=== PATIENT | female | born 1935 | race Caucasian/White ===

== ENCOUNTER 2016-09-01 07:57 | Day surgery (SDC) | payer MEDICARE, OTHER ==
[~2016-09-01] VITALS: Ht 167.6 cm; Wt 57.3 kg
[2016-09-01] VITALS (10 sets, daily range): BP systolic 152–192; BP diastolic 68–114; PULSE 70–84; TEMP 97.5–98.1
[~2016-09-01 07:57] MED LIST: ASPIRIN E.C. 8181 MG PO; CALCIUM 600MG+D1 TAB PO; CALCIUM500 MG PO; COREG 25MG25 MG/TAB PO; COUMADIN 5MG5 MG/TAB PO; DITROPAN XL 5MG5 M1 PO; FLAXSEED OIL1 CAP PO; HCTZ/TRIAMTEREN1 CAP PO; KLOR-CON 1010 MEQ PO; LASIX 40MG TABL40 MG PO; MULTIPLE VITAMI1 CAP PO; ZOCOR 20MG20 MG PO
[2016-09-01 08:48] LABS: MEAN CELL VOLUME 93 fl (80.0-100.0); MEAN CORPUSCULAR HEMOGLOBIN 30 pg (27.0-31.0); MEAN CORPUSCULAR HGB CONC 33 g/dl (33.0-37.0); MEAN PLATELET VOLUME 10.8 fl (7.4-10.4); PLATELET COUNT 224 K/mm3 (130-400); RED BLOOD COUNT 3.96 M/mm3 (4.10-5.30); REDCELL DISTRIBUTION WIDTH-CV 15.4 % (11.5-14.5); WHITE BLOOD COUNT 5.1 K/mm3 (4.8-10.8)
[2016-09-01 08:58] LABS: INR 1.2 (0.8-3.0); PROTHROMBIN TIME 13.2 SECONDS (9.7-12.8)
[2016-09-01 09:03] LABS: CALCIUM 9.5 mg/dL (8.4-10.2); CREATININE, serum 1.05 mg/dL (0.52-1.25); POTASSIUM 3.5 mmol/L (3.4-5.0)
[2016-09-01 09:04] LABS: HEMATOCRIT 36.9 % (37.0-47.0)
[2016-09-01] MEDS ORDERED: LASIX 40MG TABL40 MG PO (12:11)
[2016-09-01] MEDS ORDERED: KLOR-CON 1010 MEQ PO (12:11)
[2016-09-02 05:26] VITALS: BP 143/86; PULSE 70; TEMP 98.2
[2016-09-02 07:32] VITALS: BP 151/82; PULSE 64; TEMP 97.8
[2016-09-02] MEDS ORDERED: CEPHALEXIN500 M1 PO (10:35)
[2016-09-02] MEDS ORDERED: LIPITOR 10MG10 MG PO (10:35)
[2016-09-02] MEDS ORDERED: CARDIZEM CD 18180 MG PO (10:36)
== END 2016-09-02 11:58 | disposition home or self-care (01) ==
LOC: EUO 07:57 → COL.RAD 08:00 → EUO 08:00 → MEDICAL 12:25 → EUO 09-02 11:58
PROVIDERS: Internal Medicine Cardiovascular Disease
DX: I48.2 Chronic atrial fibrillation (principal); I49.5 Sick sinus syndrome; I11.0 Hypertensive heart disease with heart failure; I50.32 Chronic diastolic (congestive) heart failure; E78.5 Hyperlipidemia, unspecified; G47.30 Sleep apnea, unspecified; E03.9 Hypothyroidism, unspecified; M85.80 Other specified disorders of bone density and structure, unspecified site; Z79.899 Other long term (current) drug therapy; Z79.01 Long term (current) use of anticoagulants
CPT/HCPCS: OP; C1786; C1894; C1898; J0690; J2250; J3010; J7040

== ENCOUNTER 2016-09-11 10:41 | Inpatient (IN) | payer MEDICARE, OTHER ==
[~2016-09-11] VITALS: Ht 167.6 cm; Wt 60.0 kg
[~2016-09-11 10:41] MED LIST changes: +CARDIZEM CD 18180 MG PO; +CEPHALEXIN500 M1 PO; +LIPITOR 10MG10 MG PO
[2016-09-11 11:26] LABS: BASO % 0.2 % (0.0-2.0); EOS % 0.5 % (0-4.0); GRAN # 3.8 (1.4-6.5); GRAN % 68.8 % (42.2-75.2); LYMPH % 18.6 % (20.0-51.0); MEAN CELL VOLUME 93 fl (80.0-100.0); MEAN CORPUSCULAR HGB CONC 33 g/dl (33.0-37.0); MEAN PLATELET VOLUME 10.1 fl (7.4-10.4); MONO # 0.6 (0.1-0.6); MONO % 11.5 % (1.7-9.3); PLATELET COUNT 224 K/mm3 (130-400); RED BLOOD COUNT 3.64 M/mm3 (4.10-5.30); REDCELL DISTRIBUTION WIDTH-CV 14.9 % (11.5-14.5); WHITE BLOOD COUNT 5.6 K/mm3 (4.8-10.8)
[2016-09-11 11:27] LABS: HEMATOCRIT 33.7 % (37.0-47.0); MEAN CORPUSCULAR HEMOGLOBIN 30 pg (27.0-31.0)
[2016-09-11 11:37] LABS: ADJUSTED CALCIUM 9.4 mg/dL (8.4-10.2); ALBUMIN 3.3 gm/dL (3.5-5.0); BILIRUBIN,TOTAL 0.8 mg/dL (0.0-1.0); CALCIUM 8.8 mg/dL (8.4-10.2); CREATININE, serum 1.25 mg/dL (0.52-1.25); POTASSIUM 4.4 mmol/L (3.4-5.0); TOTAL PROTEIN 6.5 gm/dL (6.4-8.2)
[2016-09-11 12:47] LABS: PH 7 (5-8); SQUAMOUS EPITHELIAL None Seen /hpf; URINE APPEARANCE Clear; URINE BACTERIA None Seen /hpf; URINE BILIRUBIN Negative (NEGATIVE); URINE BLOOD Negative (NEGATIVE); URINE COLOR Straw; URINE GLUCOSE Negative (NEGATIVE); URINE KETONE Negative (NEGATIVE); URINE RBC 0-2 /hpf; URINE UROBILINOGEN Negative (NEGATIVE); URINE WBC 0-2 /hpf
[2016-09-11 19:57] VITALS: BP 117/46; PULSE 62; TEMP 97.6
[2016-09-11 23:55] VITALS: BP 127/57; PULSE 56; TEMP 98.4
[2016-09-12 04:03] VITALS: BP 145/73; PULSE 89; TEMP 98.5
[2016-09-12 07:27] VITALS: BP 154/91; PULSE 44; TEMP 98.2
[2016-09-12] MEDS ORDERED: DITROPAN XL 5MG5 M1 PO (12:54)
[2016-09-12] MEDS ORDERED: COUMADIN 5MG5 MG/TAB PO (12:54)
[2016-09-12] MEDS ORDERED: COREG 25MG25 MG/TAB PO (12:54)
[2016-09-12] MEDS ORDERED: LIPITOR 10MG10 MG PO (12:54)
[2016-09-12] MEDS ORDERED: LASIX 40MG TABL40 MG PO (12:54)
[2016-09-12] MEDS ORDERED: HCTZ 25MG TAB25 MG PO (12:54)
[2016-09-12] MEDS ORDERED: CARDIZEM CD 18180 MG PO (12:54)
== END 2016-09-12 13:10 | disposition home or self-care (01) | DRG 293 ==
LOC: COL.ER 10:41 → MEDICAL 14:51
PROVIDERS: Emergency Medicine
DX: I11.0 Hypertensive heart disease with heart failure (principal); I50.33 Acute on chronic diastolic (congestive) heart failure; I25.10 Atherosclerotic heart disease of native coronary artery without angina pectoris; I48.91 Unspecified atrial fibrillation; Z95.0 Presence of cardiac pacemaker; I42.0 Dilated cardiomyopathy
CPT/HCPCS: 99238; J1940; J7040; Q9967

== ENCOUNTER → 2017-04-13 | Outpatient (CLI) | payer MEDICARE ==
[~2017-04-13] MED LIST changes: +HCTZ 25MG TAB25 MG PO
== END ==
LOC: MC.RAD 09:59
DX: Z12.31 Encounter for screening mammogram for malignant neoplasm of breast (principal)

== ENCOUNTER → 2017-07-04 | Outpatient (CLI) | payer MEDICARE | LOC: COL.RAD 09:42 | DX: I63.8 Other cerebral infarction (principal); G31.89 Other specified degenerative diseases of nervous system | CPT/HCPCS: Q9967 ==

== ENCOUNTER 2017-11-21 08:00 | Outpatient (RCR) | payer MEDICARE ==
[2017-11-20 08:05] VITALS: BP 122/70; PULSE 57; TEMP 97.2
[~2017-11-21] VITALS: Ht 167.6 cm; Wt 53.8 kg
[~2017-11-21 08:00] MED LIST changes: +COLACE 100100 MG/CAP PO; +MIRALAX PA17 GM/Dose PO
[2017-11-21 08:15] VITALS: BP 142/87; PULSE 78; TEMP 97.3
[2017-11-22] MEDS ORDERED: LOVENOX 3030 MG/0.3 SQ (11:09)
== END 2017-11-21 08:39 | disposition home or self-care (01) ==
LOC: EUO 08:00
DX: K40.90 Unilateral inguinal hernia, without obstruction or gangrene, not specified as recurrent (principal); Z79.01 Long term (current) use of anticoagulants; I48.2 Chronic atrial fibrillation
CPT/HCPCS: J1650

== ENCOUNTER 2017-11-22 10:32 | Day surgery (SDC) | payer MEDICARE ==
[~2017-11-22] VITALS: Ht 167.6 cm; Wt 53.0 kg
[2017-11-22 11:02] VITALS: BP 152/85; PULSE 60; TEMP 97.5
[2017-11-22] MEDS ORDERED: LOVENOX 3030 MG/0.3 SQ (11:09)
[2017-11-22 13:30] VITALS: BP 162/83; PULSE 68; TEMP 97.6
[2017-11-22 13:45] VITALS: BP 161/95; PULSE 74
[2017-11-22 14:00] VITALS: BP 151/72; PULSE 68
== END 2017-11-22 14:30 | disposition home or self-care (01) ==
LOC: SDCO 10:32
DX: K40.90 Unilateral inguinal hernia, without obstruction or gangrene, not specified as recurrent (principal); I11.0 Hypertensive heart disease with heart failure; I50.32 Chronic diastolic (congestive) heart failure; I49.5 Sick sinus syndrome; Z95.0 Presence of cardiac pacemaker; Z80.0 Family history of malignant neoplasm of digestive organs; I48.2 Chronic atrial fibrillation; Z79.01 Long term (current) use of anticoagulants; M85.80 Other specified disorders of bone density and structure, unspecified site; E78.00 Pure hypercholesterolemia, unspecified; G47.33 Obstructive sleep apnea (adult) (pediatric); I25.10 Atherosclerotic heart disease of native coronary artery without angina pectoris
CPT/HCPCS: C1781; J0690; J1100; J2250; J2405; J2704; J3010; J7120

== ENCOUNTER 2017-12-14 08:48 | Emergency (ER) | payer MEDICARE ==
[~2017-12-14] VITALS: Ht 167.6 cm; Wt 52.3 kg
[~2017-12-14 08:48] MED LIST changes: +LOVENOX 3030 MG/0.3 SQ
[2017-12-14 08:52] VITALS: TEMP 98
[2017-12-14 10:06] LABS: BASO % 0.4 % (0.0-2.0); EOS # 0.1 (0.0-0.7); EOS % 1.3 % (0-4.0); GRAN # 2.7 (1.4-6.5); HEMATOCRIT 35.5 % (37.0-47.0); HEMOGLOBIN 11.4 g/dl (12.5-16.0); LYMPH # 1.3 (1.2-3.4); LYMPH % 28.7 % (20.0-51.0); MEAN CELL VOLUME 96 fl (80.0-100.0); MEAN CORPUSCULAR HEMOGLOBIN 31 pg (27.0-31.0); MEAN CORPUSCULAR HGB CONC 32 g/dl (33.0-37.0); MEAN PLATELET VOLUME 9.5 fl (7.4-10.4); MONO # 0.5 (0.1-0.6); MONO % 11.4 % (1.7-9.3); PLATELET COUNT 202 K/mm3 (130-400); REDCELL DISTRIBUTION WIDTH-CV 14.1 % (11.5-14.5)
[2017-12-14 10:18] LABS: INR 1.9 (0.8-3.0)
[2017-12-14 10:53] VITALS: BP 163/106; PULSE 78
== END 2017-12-14 10:54 | disposition home or self-care (01) ==
LOC: COL.ER 08:48
PROVIDERS: Nurse Practitioner
DX: S09.90XA Unspecified injury of head, initial encounter (principal); S51.811A Laceration without foreign body of right forearm, initial encounter; R55 Syncope and collapse; Z23 Encounter for immunization; I10 Essential (primary) hypertension; Z95.0 Presence of cardiac pacemaker; Z79.01 Long term (current) use of anticoagulants; W18.39XA Other fall on same level, initial encounter; W22.8XXA Striking against or struck by other objects, initial encounter

== ENCOUNTER 2017-12-28 10:47 | Emergency (ER) | payer MEDICARE ==
[2017-12-28 10:50] VITALS: BP 122/70; PULSE 68
== END 2017-12-28 10:58 | disposition home or self-care (01) ==
LOC: COL.ER 10:47
DX: S51.811D Laceration without foreign body of right forearm, subsequent encounter (principal); Z79.01 Long term (current) use of anticoagulants

== ENCOUNTER 2018-01-26 09:31 | Emergency (ER) | payer MEDICARE ==
[~2018-01-26] VITALS: Ht 167.6 cm; Wt 52.3 kg
[2018-01-26 09:34] VITALS: TEMP 98
[2018-01-26 09:58] LABS: BASO % 0.7 % (0.0-2.0); EOS # 0.1 (0.0-0.7); EOS % 1.7 % (0-4.0); GRAN # 2.1 (1.4-6.5); GRAN % 51.9 % (42.2-75.2); HEMOGLOBIN 11.9 g/dl (12.5-16.0); LYMPH # 1.3 (1.2-3.4); LYMPH % 31.9 % (20.0-51.0); MEAN CELL VOLUME 94 fl (80.0-100.0); MEAN CORPUSCULAR HEMOGLOBIN 31 pg (27.0-31.0); MEAN CORPUSCULAR HGB CONC 33 g/dl (33.0-37.0); MEAN PLATELET VOLUME 9.9 fl (7.4-10.4); MONO # 0.5 (0.1-0.6); MONO % 13.3 % (1.7-9.3); PLATELET COUNT 212 K/mm3 (130-400); RED BLOOD COUNT 3.81 M/mm3 (4.10-5.30); REDCELL DISTRIBUTION WIDTH-CV 14.4 % (11.5-14.5)
[2018-01-26 09:59] LABS: HEMATOCRIT 35.8 % (37.0-47.0)
[2018-01-26 10:08] LABS: ALBUMIN 3.7 gm/dL (3.5-5.0); BILIRUBIN,TOTAL 0.5 mg/dL (0.0-1.0); CALCIUM 9.1 mg/dL (8.4-10.2); CREATININE, serum 0.99 mg/dL (0.52-1.25); POTASSIUM 3.9 mmol/L (3.4-5.0); TOTAL PROTEIN 6.8 gm/dL (6.4-8.2)
[2018-01-26 10:15] LABS: INR 2.2 (0.8-3.0); PROTHROMBIN TIME 24.8 SECONDS (9.7-12.8)
[2018-01-26 11:11] LABS: COLLECTION METHOD CLEAN CATCH
[2018-01-26 11:19] LABS: PH 8 (5-8); SQUAMOUS EPITHELIAL 0-2 /hpf; URINE APPEARANCE Clear; URINE BACTERIA None Seen /hpf; URINE BILIRUBIN Negative (NEGATIVE); URINE BLOOD Negative (NEGATIVE); URINE COLOR Yellow; URINE GLUCOSE Negative (NEGATIVE); URINE KETONE Negative (NEGATIVE); URINE LEUKOCYTE ESTERASE Negative (NEGATIVE); URINE NITRATE Negative (NEGATIVE); URINE PROTEIN(semi-quant) Negative (NEGATIVE); URINE RBC 0-2 /hpf; URINE UROBILINOGEN Negative (NEGATIVE)
[2018-01-26] MEDS ORDERED: MEDROL 4MG DOSPA4 MG PO ×2 (12:44→13:20)
[2018-01-26 13:36] VITALS: BP 144/93; PULSE 71
== END 2018-01-26 13:18 | disposition home or self-care (01) ==
LOC: COL.ER 09:31
PROVIDERS: Emergency Medicine
DX: T78.3XXA Angioneurotic edema, initial encounter (principal); R47.1 Dysarthria and anarthria; Z79.01 Long term (current) use of anticoagulants
CPT/HCPCS: J2930; J7030; Q9967

== ENCOUNTER 2018-06-18 18:24 | Emergency (ER) | payer MEDICARE, OTHER ==
[~2018-06-18] VITALS: Ht 167.6 cm; Wt 50.9 kg
[~2018-06-18 18:24] MED LIST changes: +MEDROL 4MG DOSPA4 MG PO
[2018-06-18 18:33] VITALS: TEMP 97.3
[2018-06-18 19:06] LABS: BASO % 0.3 % (0.0-2.0); EOS # 0.1 (0.0-0.7); EOS % 1.5 % (0-4.0); GRAN # 1.9 (1.4-6.5); GRAN % 54.8 % (42.2-75.2); LYMPH # 1.1 (1.2-3.4); LYMPH % 32.2 % (20.0-51.0); MEAN CELL VOLUME 97 fl (80.0-100.0); MEAN CORPUSCULAR HEMOGLOBIN 31 pg (27.0-31.0); MEAN CORPUSCULAR HGB CONC 33 g/dl (33.0-37.0); MONO # 0.4 (0.1-0.6); MONO % 10.9 % (1.7-9.3); PLATELET COUNT 202 K/mm3 (130-400); RED BLOOD COUNT 3.82 M/mm3 (4.10-5.30); REDCELL DISTRIBUTION WIDTH-CV 14.9 % (11.5-14.5)
[2018-06-18 19:07] LABS: HEMATOCRIT 36.9 % (37.0-47.0)
[2018-06-18 19:10] LABS: INR 1.8 (0.8-3.0); PROTHROMBIN TIME 20.8 SECONDS (9.7-12.8)
[2018-06-18 19:18] LABS: ALBUMIN 3.5 gm/dL (3.5-5.0); BILIRUBIN,TOTAL 0.4 mg/dL (0.0-1.0); CALCIUM 9.2 mg/dL (8.4-10.2); CREATININE, serum 1.04 mg/dL (0.52-1.25); TOTAL PROTEIN 6.3 gm/dL (6.4-8.2)
[2018-06-18 20:04] VITALS: BP 172/97; PULSE 81
== END 2018-06-18 20:08 | disposition home or self-care (01) ==
LOC: COL.ER 18:24
PROVIDERS: Emergency Medicine
DX: R04.0 Epistaxis (principal); I10 Essential (primary) hypertension; I50.9 Heart failure, unspecified; I48.91 Unspecified atrial fibrillation; Z79.01 Long term (current) use of anticoagulants

== ENCOUNTER → 2018-06-27 | Outpatient (CLI) | payer MEDICARE, OTHER | LOC: COL.RAD 06-12 08:00 | DX: M48.061 Spinal stenosis, lumbar region without neurogenic claudication (principal); M51.17 Intervertebral disc disorders with radiculopathy, lumbosacral region; I63.9 Cerebral infarction, unspecified; M43.16 Spondylolisthesis, lumbar region; I67.82 Cerebral ischemia; J32.3 Chronic sphenoidal sinusitis; G31.9 Degenerative disease of nervous system, unspecified | CPT/HCPCS: Q9967 ==

== ENCOUNTER → 2018-07-13 | Outpatient (CLI) | payer MEDICARE, OTHER | LOC: COL.CARD 09:56 | DX: R55 Syncope and collapse (principal); I63.9 Cerebral infarction, unspecified; M54.17 Radiculopathy, lumbosacral region ==

== ENCOUNTER 2021-04-27 09:09 | Emergency (ER) | payer MEDICARE, OTHER ==
[~2021-04-27] VITALS: Ht 167.6 cm; Wt 50.0 kg
[~2021-04-27 09:09] MED LIST changes: +AMOXICILLIN/CLA1 TA1 PO; +ASPIRIN 81M81 MG/TA2 PO; +COUMADIN 22.5 MG/TAB PO; +COUMADIN4 MG PO; +COZAAR 25MG25 MG/TAB PO; +K-TAB20 PO; +LAMICTAL 100MG100 MG PO; +LAMICTAL 25MG T25 MG PO; +SUPER CALCIUM W1 TA1 PO
[2021-04-27 09:24] VITALS: TEMP 97.6
[2021-04-27] MEDS ORDERED: NORCO 325 MG-51 TAB PO (11:05)
[2021-04-27 11:25] VITALS: BP 148/83; PULSE 68
== END 2021-04-27 11:25 | disposition home or self-care (01) ==
LOC: COL.ER 09:09
DX: S42.032A Displaced fracture of lateral end of left clavicle, initial encounter for closed fracture (principal); S09.90XA Unspecified injury of head, initial encounter; S00.412A Abrasion of left ear, initial encounter; I10 Essential (primary) hypertension; I48.91 Unspecified atrial fibrillation; I25.10 Atherosclerotic heart disease of native coronary artery without angina pectoris; Z87.891 Personal history of nicotine dependence; Z79.01 Long term (current) use of anticoagulants; Z79.82 Long term (current) use of aspirin; Z79.899 Other long term (current) drug therapy; W10.8XXA Fall (on) (from) other stairs and steps, initial encounter

== ENCOUNTER → 2021-11-21 | Emergency (ER) | payer MEDICARE, OTHER ==
[~2021-11-21] VITALS: Ht 167.6 cm; Wt 50.0 kg
[~2021-11-21] MED LIST changes: +NORCO 325 MG-51 TAB PO
[2021-11-21 17:41] VITALS: TEMP 98.3
[2021-11-21 19:59] VITALS: BP 186/105; PULSE 84
== END ==
LOC: COL.ER 16:50
DX: S82.55XA Nondisplaced fracture of medial malleolus of left tibia, initial encounter for closed fracture (principal); W01.0XXA Fall on same level from slipping, tripping and stumbling without subsequent striking against object, initial encounter; Y92.009 Unspecified place in unspecified non-institutional (private) residence as the place of occurrence of the external cause

== ENCOUNTER 2023-09-01 17:40 | Inpatient (IN) | payer MEDICARE ==
[~2023-09-01] VITALS: Ht 167.6 cm; Wt 50.8 kg
[~2023-09-01 17:40] MED LIST changes: +BACTRIM DS 8001 TAB PO; +COZAAR 50MG50 MG/TAB PO; +K-DUR20 MEQ PO; -LAMICTAL 25MG T25 MG PO; +LIPITOR20 MG PO; +SEROQUEL 2525 MG/TAB PO
[2023-09-01 18:08] LABS: BASO % 0.4 % (0.0-2.0); EOS # 0.2 K/mm3 (0.0-0.7); EOS % 2.9 % (0.0-4.0); GRAN # 3.3 K/mm3 (1.4-6.5); GRAN % 59.9 % (42.2-75.2); HEMATOCRIT 33.1 % (37.0-47.0); HEMOGLOBIN 10.1 g/dl (12.5-16.0); LYMPH # 1.5 K/mm3 (1.2-3.4); LYMPH % 27.9 % (20.0-51.0); MEAN CELL VOLUME 102 fl (80.0-100.0); MEAN CORPUSCULAR HEMOGLOBIN 31 pg (27-31); MEAN CORPUSCULAR HGB CONC 31 g/dl (33.0-37.0); MEAN PLATELET VOLUME 10.2 fl (7.4-10.4); MONO # 0.5 K/mm3 (0.1-0.6); MONO % 8.5 % (1.7-9.3); PLATELET COUNT 239 K/mm3 (130-400); RED BLOOD COUNT 3.24 M/mm3 (4.10-5.30); REDCELL DISTRIBUTION WIDTH-CV 17.6 % (11.5-14.5)
[2023-09-01 18:29] LABS: ALBUMIN 3.1 gm/dL (3.4-4.8); BILIRUBIN,TOTAL 0.3 mg/dL (0.2-1.2); CALCIUM 8.7 mg/dL (8.4-10.2); CREATININE, serum 1.44 mg/dL (0.57-1.11); POTASSIUM 4.3 mmol/L (3.5-4.5)
[2023-09-01] MEDS ORDERED: Naloxone 0.4 MG/ML VIAL IV PRN (19:15)
[2023-09-01] MEDS ORDERED: D5 1/2 NS 1,000 ML IV SCH (19:15)
[2023-09-01] MEDS ORDERED: oxyCODONE 5 MG TAB PO PRN (19:15)
[2023-09-01] MEDS ORDERED: Morphine 4 MG/ML VIAL IV PRN (19:15)
[2023-09-01 19:53] LABS: INR 1.6 (0.8-3.0)
[2023-09-01] MEDS ORDERED: Acetaminophen 500 MG TAB PO SCH (20:04)
[2023-09-01 20:33] LABS: COLLECTION METHOD CATHETER
[2023-09-01 20:35] LABS: URINE APPEARANCE CLOUDY (CLEAR/HAZY); URINE BLOOD NEGATIVE (NEGATIVE); URINE COLOR YELLOW (YELLOW); URINE GLUCOSE NEGATIVE (NEGATIVE); URINE KETONE NEGATIVE (NEGATIVE); URINE NITRATE NEGATIVE (NEGATIVE); URINE PROTEIN(semi-quant) NEGATIVE (NEGATIVE); URINE UROBILINOGEN 0.2 E.U/dL (0.2-1.0)
--- NOTE | 2023-09-01 21:20 | NUR ---
arrived on unit per stretcher, assisted from stretcher over into bed with use of slide board, c/o some pain with movement but then is better, KARYN hose on bilaterally but the openeing was up around top of foot and there was 2 plus pitting edema on both feet, KARYN hose removed and correct size on left leg only, SCDS on bilaterally, rolled to side cocyx without redness and is intact,
[2023-09-01 21:34] VITALS: BP 189/110; PULSE 82; TEMP 97.5
[2023-09-01] MEDS ORDERED: Carvedilol 25 MG TAB PO SCH (22:17)
[2023-09-01 22:24] VITALS: BP_SYST 189
--- NOTE | 2023-09-01 22:27 | NUR ---
medicated with coreg 25mg po as takes at home at bedtime
[2023-09-01] MEDS ORDERED: TYLENOL 500MG500 MG PO ×2 (22:34→22:35)
[2023-09-01] MEDS ORDERED: ALPHAGAN OPHTH D5 ML OU (22:43)
[2023-09-01] MEDS ORDERED: ELIQUIS 2.5 PO (22:44)
[2023-09-01] MEDS ORDERED: BUMEX2 MG PO (22:44)
[2023-09-01] MEDS ORDERED: ICAPS TABLET1 EACH PO (22:45)
[2023-09-01] MEDS ORDERED: MELATIN 3 MG-11 TAB PO (22:45)
[2023-09-01] MEDS ORDERED: GOOD NEIGH1200 MG/15 PO (22:46)
[2023-09-01] MEDS ORDERED: MIRTAZAPINE7.5 MG PO (22:47)
[2023-09-01] MEDS ORDERED: MIRALAX PA17 GM/Dose PO (22:47)
[2023-09-01 23:15] VITALS: BP 140/88; PULSE 75; TEMP 97.8
--- NOTE | 2023-09-01 23:18 | NUR ---
BP now 140/88, ALCIDES Reyes notified of this
--- NOTE | 2023-09-01 23:30 | NUR ---
O2 sat 100% on O2 4L/NC, O2 down to 2L
[2023-09-01 23:48] VITALS: BP_SYST 140
[2023-09-02] VITALS (10 sets, daily range): BP systolic 77–143; BP diastolic 51–96; PULSE 65–97; TEMP 97.4–98.3
--- NOTE | 2023-09-02 01:30 | NUR ---
entered room and she is awake and concerned and tearful about where her is, turned on the lights so she could see where she was, reoriented her where she is and her cannot come in tonight, will try and have him come in the morning
[2023-09-02] MEDS ORDERED: lamoTRIgine 100 MG TAB PO SCH (01:42)
[2023-09-02] MEDS ORDERED: QUEtiapine 25 MG TAB PO SCH (01:47)
[2023-09-02] MEDS ORDERED: DULCOLAX S10 MG/SUPP RC (01:52)
--- NOTE | 2023-09-02 01:55 | NUR ---
appears to again be sleeping
[2023-09-02] MEDS ORDERED: Melatonin 3 MG TAB PO PRN (02:00)
[2023-09-02] MEDS ORDERED: Magnes Hydrox (MOM) 80 MG/ML 30 ML CUP PO PRN (02:00)
[2023-09-02] MEDS ORDERED: Polyethylene Glycol 3350 17 GM PDS PO PRN (02:00)
--- NOTE | 2023-09-02 02:22 | NUR ---
IV rate decreased to 60ml/hr
--- NOTE | 2023-09-02 02:55 | NUR ---
awakened and tried to give lamictal, was slapping at my hand telling me to go awayk, offered applesauce and she said she would like some applesauce, attempted to give lamictal and seroquel in pudding but she again, is swatting and slapping at my hands and grabbing my hands telling me to get away, will just let her go back to sleep
--- NOTE | 2023-09-02 03:45 | NUR ---
awake for vital signs, agreed and took tylenol as scheduled, she is pulling at nasal cannula, O2 sat 99% on 2L and O2 removed
--- NOTE | 2023-09-02 06:22 | NUR ---
appears to continue to sleep
--- NOTE | 2023-09-02 06:30 | NUR ---
bedside shift report given to ZACH Kenyon
--- NOTE | 2023-09-02 06:42 | NUR ---
Dr Moore notified of consult
[2023-09-02 06:44] LABS: BASO % 0.4 % (0.0-2.0); EOS # 0.1 K/mm3 (0.0-0.7); EOS % 1.2 % (0.0-4.0); GRAN # 3.6 K/mm3 (1.4-6.5); GRAN % 63.7 % (42.2-75.2); LYMPH # 1.4 K/mm3 (1.2-3.4); LYMPH % 25.4 % (20.0-51.0); MEAN CORPUSCULAR HGB CONC 32 g/dl (33.0-37.0); MONO # 0.5 K/mm3 (0.1-0.6); MONO % 9.1 % (1.7-9.3); PLATELET COUNT 215 K/mm3 (130-400); RED BLOOD COUNT 2.94 M/mm3 (4.10-5.30); REDCELL DISTRIBUTION WIDTH-CV 17.3 % (11.5-14.5)
[2023-09-02 06:47] LABS: HEMATOCRIT 28.6 % (37.0-47.0); HEMOGLOBIN 9.2 g/dl (12.5-16.0); MEAN CELL VOLUME 97 fl (80.0-100.0); MEAN CORPUSCULAR HEMOGLOBIN 31 pg (27-31)
[2023-09-02 07:00] LABS: ALBUMIN 2.7 gm/dL (3.4-4.8); BILIRUBIN,TOTAL 0.3 mg/dL (0.2-1.2); CALCIUM 8.5 mg/dL (8.4-10.2); CREATININE, serum 1.24 mg/dL (0.57-1.11); POTASSIUM 3.3 mmol/L (3.5-4.5); TOTAL PROTEIN 5.1 gm/dL (6.2-8.1)
--- NOTE | 2023-09-02 08:00 | NUR ---
Patient laying in bed, Alert, but drowsy. Not talking much. VSS. IV CDI, fluids infusing. [place] intact. Denies pain and discomfort. Call light within reach. Bed alarm on
[2023-09-02] MEDS ORDERED: Bumetanide 1 MG TAB PO SCH (09:00)
[2023-09-02] MEDS ORDERED: Pantoprazole 40 MG in NS 10 ML IV SCH (09:00)
[2023-09-02] MEDS ORDERED: Brimonidine 0.2% Ophth Soln 5 ML BOTTLE OP SCH (09:00)
[2023-09-02] MEDS ORDERED: Polyethylene Glycol 3350 17 GM PDS PO SCH (09:00)
[2023-09-02] MEDS ORDERED: Eye Formula MVI w/Minerals TABLET PO SCH (09:00)
[2023-09-02] MEDS ORDERED: Docusate Sodium 100 MG CAP PO SCH (09:00)
[2023-09-02] MEDS ORDERED: Multivitamin TAB PO SCH (09:00)
--- NOTE | 2023-09-02 10:52 | NUR ---
NALLELY Og identified self as SW Student and completed intake with patient and Pankaj (ph#[phone]) at bedside. Patient currently lives at [facility] and sees Dr. Ovalles for PCP. [facility] uses [facility] in [place] for medications. stated that patient utilizes a walker and wheelchair as well as a CPAP. NALLELY Student verified with Pankaj that he is patient's DPOA-HC. Patient is covered by Medicare A&B and [employer]. NALLELY Og went over possible PT/OT recommendations such as receiving Skilled PT/OT at [facility]. Pankaj voiced understanding. PT/OT will evaluate patient after surgery. Discharge Plan:[facility]
--- NOTE | 2023-09-02 11:43 | NUR ---
D: Initial visit: Management Retail Intern stopped in room on rounds. Pt was eating breakfast with family in the room. A: Pt has no needs right now. Pt and family appreciated the visit. P: Management Retail Intern informed pt that if she needed anything from the electronics repair technician area to let her nurse know. Management Retail Intern will follow up as needed.
[2023-09-02] MEDS ORDERED: NS 1,000 ML IV ONE ×2 (11:45)
[2023-09-02] MEDS ORDERED: D5 1/2 NS 1,000 ML IV SCH (11:45)
[2023-09-02 11:53] LABS: HEMATOCRIT 27.5 % (37.0-47.0); HEMOGLOBIN 8.5 g/dl (12.5-16.0)
--- NOTE | 2023-09-02 12:04 | NUR ---
Dr Ewing notified of patients low bp
--- NOTE | 2023-09-02 20:30 | NUR ---
PT IN BED & CRYING OUT. ATTEMPTING TO GET OUT OF BED, EDUCATED PT ON BEDREST & REORIENTED PT. PT IS ALERT BUT CONFUSED. VSS ON ROOM AIR. PT STATES HER RIGHT LEG IS IN PAIN, GIVEN PRN MORPHINE & AN ICE PACK. WEI TO DD WITH YELLOW OUTPUT. IVF INFUSING TO PICC IN RIGHT UPPER ARM @ 125MLS/HR. KARYN TO LLE & BILAT SCDS.
[2023-09-02] MEDS ORDERED: Atorvastatin 20 MG TAB PO SCH (21:00)
--- NOTE | 2023-09-02 21:15 | NUR ---
PT CONTINUES TO INTERMITTENTLY CRY OUT. REPOSITIONED PT & APPLIED ICE PACK TO RT HIP. PT REORIENTED. FALL PRECAUTIONS IN PLACE & CALL LIGHT IN REACH
--- NOTE | 2023-09-02 23:10 | NUR ---
PT RESTING IN BED NOW WITH UNLABORED RESP. FALL PRECAUTIONS IN PLACE
--- NOTE | 2023-09-02 23:24 | NUR ---
Pt currently sleeping peacefully. RN will call if pt awakes or shows symptoms of EMANUEL. CPAP on standby outside pt room.
[2023-09-03] VITALS (9 sets, daily range): BP systolic 89–153; BP diastolic 64–96; PULSE 81–94; TEMP 97.5–98.8
--- NOTE | 2023-09-03 03:15 | NUR ---
PT CRYING OUT. STATING "HELP ME" & "IT HURTS", GIVEN PRN MORPHINE PER MAR. REFUSING ICE PACK AT THIS TIME
[2023-09-03] MEDS ORDERED: LR 1,000 ML IV SCH (10:30)
[2023-09-03] MEDS ORDERED: Bumetanide 1 MG TAB PO SCH (11:44)
[2023-09-03] MEDS ORDERED: Potassium Bicarbonate/Citrate 20 MEQ Effervescent TAB PO SCH (11:45)
[2023-09-03] MEDS ORDERED: *Potassium Replacement Protocol MC SCH (11:45)
[2023-09-03] MEDS ORDERED: ALPRAZolam 0.25 MG TAB PO PRN (12:00)
[2023-09-03 12:08] LABS: BASO % 0.3 % (0.0-2.0); EOS # 0.1 K/mm3 (0.0-0.7); EOS % 1.3 % (0.0-4.0); GRAN # 4.7 K/mm3 (1.4-6.5); LYMPH # 1.3 K/mm3 (1.2-3.4); LYMPH % 19.1 % (20.0-51.0); MEAN CELL VOLUME 98 fl (80.0-100.0); MEAN CORPUSCULAR HGB CONC 31 g/dl (33.0-37.0); MEAN PLATELET VOLUME 9.7 fl (7.4-10.4); MONO # 0.6 K/mm3 (0.1-0.6); PLATELET COUNT 212 K/mm3 (130-400); RED BLOOD COUNT 2.78 M/mm3 (4.10-5.30); REDCELL DISTRIBUTION WIDTH-CV 17.4 % (11.5-14.5)
[2023-09-03 12:11] LABS: HEMATOCRIT 27.3 % (37.0-47.0); HEMOGLOBIN 8.4 g/dl (12.5-16.0); MEAN CORPUSCULAR HEMOGLOBIN 30 pg (27-31)
[2023-09-03] MEDS ORDERED: Potassium Chloride 100 ML IV SCH (12:30)
--- NOTE | 2023-09-03 12:51 | NUR ---
PT RESTING IN BED WITH NO PAIN BUT TEARFUL. PRN ANXIETY MEDICATION PROVIDED. BILATERAL LEGS COOL TO TOUCH, PULSES +1, EDEMA +3 AND PT ABLE TO MOVE TOES. SCD'S IN PLACE AND WEI TO DEPENDENT DRAINAGE. PICC LINE DRESSING CHANGE COMPLETE. NO SIGNS OF INFECTION, STERILE PROCESS USED. PT WITH COUGH DUIRNG WITH ANY FOOD OR DRINK. DR. CHRIS NOTIFIED AND DIET CHANGED TO SOFT AND BITE SIZED. IV IN L FOREARM REMOVED. FAMILY AT BESIDE. NO NEEDS AT THIS TIME. WILL CONTINUE TO MONITOR.
--- NOTE | 2023-09-03 16:30 | NUR ---
PT LAYING IN BED SWINGING IN THE AIR CRYING OUT AND TEARFUL. PT REPOSITIONED, PAIN MEDICATION PROVIDED PER EMAR. ATTEMPTED TO REDIRECT PT AND PROVIDE SIMPLE TOUCH COMFORT. PT STATES "GO AWAY" AND "SHUT UP". PT PULLING AT GOWN, WEI, AND TELLE. PT PROVIDED WITH TOWELS TO SQUEEZE, PT THREW TOWELS AT LOSS PREVENTION DETECTIVE. WILL CONTINUE TO MONITOR.
[2023-09-03] MEDS ORDERED: LORazepam 2 MG/ML 1 ML VIAL IV PRN (16:45)
--- NOTE | 2023-09-03 17:20 | NUR ---
PT CONTINUES TO CRY OUT AND REMIANS INCONSOLABLE. SIMPLE TOUCH AND SHELL FREEZING MACHINE OPERATOR AT BEDSIDE. DR. CHRIS NOTIFIED AND PRN ATIVAN ORDERED. DOSE PROVIDED. WILL CONTINUE TO MONTIOR.
--- NOTE | 2023-09-03 17:35 | NUR ---
PT CONTINUES TO PULL ON FLOEY CATHETER AND TELLE. SKIN TEAR ON PT RIGHT FOREARM FROM PT NAIL. PT CONTINUE TO THRASH ARMS AROUND AND CALL OUT. ORDERS TO APPLY MITS. MITS APPLIED. WILL CONTINUE TO MONITOR.
--- NOTE | 2023-09-03 19:04 | NUR ---
PATIENT ALERT AND CONFUSED RESTLESS IN BED BITING MITTS WITH AUDIBLE MOANING NOTED. PICC LINE TO RIGHT UPPER ARM INTACT WITH NO COMPLICATIONS NOTED. WEI CATH INTACT, PATENT, AND DRAINING CLEAR YELLOW URINE. TELEMETRY INTACT. PATIENT HR UP IN 130'S. PAIN MEDICATION GIVEN BY DAYSHIFT NURSE AT THIS TIME. PATIENT TOLERATD WELL. MOUTH CARE PERFORMED BY INVESTOR RELATIONS ASSOCIATE NURSE. PATIENT TOLERATED WELL. PATIENT CARE ASSUME FROM [facility] AT THIS TIME. BED IN LOW POSITION WITH WHEELS LOCKED WITH RAILS UP X3 AND CALL LIGHT WITHIN REACH. BED ALARM ON.
--- NOTE | 2023-09-03 20:05 | NUR ---
PATIENT RESTING IN BED BITING MITTENS, FLAILING ARMS IN AIR, AND MOANING. TV OFF AND NO FAMILY PRESENT. PATIENT REPOSITION FOR COMFORT. MOUTH CARE PERFORMED. WATER GIVEN. PATIENT ON 2 LITERS OF OXYGEN VIA NC. PICC LINE TO RIGHT UPPER ARM INTACT WITH NO COMPLICATIONS NOTED. WEI CATH INTACT, PATENT, AND DRAINING CLEAR YELLLOW URINE. ASSESSMENT COMPLETED. PATIENT TOLERATED WELL. ALL NEEDS MET. BED IN LOW POSITION WITH WHEELS LOCKED WITH RAILS UP X3 AND CALL LIGHT WITHIN REACH. BED ALARM ON.
--- NOTE | 2023-09-03 22:50 | NUR ---
PATIENT ALERT, AGGITATED, BITING MITTENS, MOANING, CALLING FOR MOTHER, AND UNCONSOLIABLE. MOUTH CARE ATTEMPTED. PATIENT REPOSITIONED. ATIVAN GIVEN PER MD ORDER. PATIENT TOLERATED WELL. ALL NEEDS MET. BED IN LOW POSITION WITH WHEELS LOCKED WITH RAILS UP X3 AND CALL LIGHT WITHIN REACH. BED ALARM ON.
[2023-09-04] VITALS (17 sets, daily range): BP systolic 88–150; BP diastolic 53–90; PULSE 61–90; TEMP 96.3–98.2
[2023-09-04] MEDS ORDERED: D5 1/2 NS 1,000 ML IV SCH (02:00)
[2023-09-04 06:55] LABS: INR 1.5 (0.8-3.0); PROTHROMBIN TIME 16.4 SECONDS (9.7-12.8)
[2023-09-04 07:04] LABS: HEMATOCRIT 24.9 % (37.0-47.0); HEMOGLOBIN 7.5 g/dl (12.5-16.0)
--- NOTE | 2023-09-04 07:17 | NUR ---
PT RESTING IN BED WITH EYES CLOSED. MITS REMOVED FROM PT. PT CONTINUES TO LAY QUIETLY IN BED. WILL CONTINUE TO MONITOR.
[2023-09-04] MEDS ORDERED: Lidocaine PF 2% (20 MG/ML) 5 ML VIAL ONE (07:29)
[2023-09-04] MEDS ORDERED: fentaNYL 50 MCG/ML 2 ML VIAL ONE (07:29)
[2023-09-04] MEDS ORDERED: Ondansetron 4 MG/2 ML VIAL ONE (07:30)
[2023-09-04] MEDS ORDERED: NS 10 ML IV ONE (07:30)
[2023-09-04] MEDS ORDERED: dexAMETHasone 10 MG/ML VIAL ONE (07:30)
--- NOTE | 2023-09-04 07:30 | NUR ---
PT RESTING IN BED WITH EYES CLOSED, PT WAKES TO TOUCH STIMULI ONLY BUT DOES NOT OPEN EYES. WEI TO DEPENDENT DRAINAGE, 2L O2 NC, AND FAMILY AT BEDSIDE. WILL CONTINUE TO MONITOR.
[2023-09-04] MEDS ORDERED: Phenylephrine 10 MG/ML VIAL ONE (08:04)
[2023-09-04] MEDS ORDERED: NS 200 ML IV ONE (08:04)
[2023-09-04] MEDS ORDERED: ePHEDrine 50 MG/ML VIAL ONE (08:12)
[2023-09-04] MEDS ORDERED: fentaNYL 50 MCG/ML 2 ML VIAL IV PRN ×2 (08:30)
[2023-09-04] MEDS ORDERED: Ondansetron 4 MG/2 ML VIAL IV PRN ×2 (08:30→09:00)
[2023-09-04] MEDS ORDERED: Topical Skin Adhesive 1 EACH (1 ML) TOP ONE ×2 (08:36→08:50)
[2023-09-04] MEDS ORDERED: NS 1,000 ML IV SCH (09:00)
[2023-09-04] MEDS ORDERED: Magnes Hydrox (MOM) 80 MG/ML 30 ML CUP PO PRN (09:00)
[2023-09-04] MEDS ORDERED: traMADol 50 MG TAB PO PRN (09:00)
--- NOTE | 2023-09-04 09:30 | NUR ---
PT UP TO FLOOR AT THIS TIME. BP 90'S/50'S. DIFFICULT TO OBTAIN PULSE OX, PT ON 10L OXY MASK FOR MOUTH BREATHING. PT APPEARS TO BE IN NO PAIN RESTING QUIETLY WITH EYES CLOSED. DRESSING TO RIGHT HIP CLEAN AND DRY. TEDS AND SCDS APPLIED. FAMILY AT BEDSIDE. WILL CONTINUE TO MONITOR.
[2023-09-04] MEDS ORDERED: Heparin 5,000 UNITS/ML 1 ML VIAL SQ SCH ×2 (12:01→16:00)
--- NOTE | 2023-09-04 14:30 | NUR ---
NOTIFIED OF DECREASED URINE OUTPUT OF 37 ML/HR AND URINE DARK VIRIDIANA.
[2023-09-04] MEDS ORDERED: Metoprolol Tartrate 5 MG/5 ML VIAL IV SCH (16:30)
--- NOTE | 2023-09-04 16:36 | NUR ---
NOTIFIED PT REMAINS UNRESPONSIVE AND UNABLE TO TAKE FLUIDS OR PO MEDICATION. ORDERS PLACED.
[2023-09-04] MEDS ORDERED: levETIRAcetam 100 ML IV SCH (16:45)
[2023-09-04 18:03] LABS: HEMATOCRIT 26.8 % (37.0-47.0); HEMOGLOBIN 8.2 g/dl (12.5-16.0)
[2023-09-04 18:18] LABS: CALCIUM 7.9 mg/dL (8.4-10.2); CREATININE, serum 1.17 mg/dL (0.57-1.11); POTASSIUM 5.1 mmol/L (3.5-4.5)
[2023-09-04] MEDS ORDERED: ceFAZolin 1 G in Water For Injection,Sterile 10 ML IV SCH (19:30)
--- NOTE | 2023-09-04 20:00 | NUR ---
PATIENT IS CONFUSED AND COMBATIVE AT TIMES. PATIENT HAS HX OF DEMENTIA. VSS. IRREGULAR HR IN 70-80'S ON TELE. HX OF A-FIB. CLEAR LIQUID DIET BUT NOT TAKING MUCH IN ORALLY. REFUSED HS PILLS AND GETS AGGRESIVE. DAY SHIFT RN GAVE PRN IV ATIVAN BEFORE SHIFT CHANGE. PATIENT ALSO RECEIVING IV MORPHINE FOR PAIN, SEE MAR. IV FLUIDS INFUSING VIA PUMP INTO RUE PICC LINE. RIGHT HIP SITES X3. WEI TO DD WITH SMALL AMOUNTS OF DARK, TEA-COLORED URINE NOTED. HEAD TO TOE ASSESSMENT COMPLETE. DNR STATUS. SCD'S TO BLE. NO OTHER NEEDS AT THIS TIME. CALL LIGHT IN REACH. BED ALARM ON.
[2023-09-04] MEDS ORDERED: Melatonin 3 MG TAB PO PRN (21:00)
[2023-09-04] MEDS ORDERED: Apixaban 2.5 MG TAB PO SCH (21:00)
[2023-09-04] MEDS ORDERED: Sennosides/Docusate 8.6-50 MG TAB PO SCH (21:00)
[2023-09-05] VITALS (12 sets, daily range): BP systolic 106–157; BP diastolic 45–100; PULSE 62–110; TEMP 96.2–97.8
--- NOTE | 2023-09-05 00:45 | NUR ---
PATIENT BECOMING RESTLESS, CRYING AND PULLING AT LINES. GAVE PRN IV MORPHINE FOR PAIN, SEE MAR.
--- NOTE | 2023-09-05 02:44 | NUR ---
PATIENT AWAKE, CRYING AND PULLING AT HER GOWN & TELE. GAVE PRN IV ATIVAN, SEE MAR. REPLACED TELE LEADS & BATTERIES. CALL LIGHT IN REACH. BED ALARM ON. DOOR OPEN.
[2023-09-05 05:54] LABS: HEMATOCRIT 27.4 % (37.0-47.0); HEMOGLOBIN 8.5 g/dl (12.5-16.0)
--- NOTE | 2023-09-05 08:30 | NUR ---
WHILE PATIENT WAS DOING PHYSICAL THERAPY, PATIENT HAD APNEIC BREATHING EPISODES LASTING APPROX. 30 SECONDS OFF AND ON. NARCAN WAS GIVEN PER DOCTOR VERBAL ORDER WHO CAME INTO ROOM TO ASSESS THE PATIENT. PATIENT OXYGEN SATURATION WAS AT 96% AFTER MEDICATION WAS GIVEN. PATIENT REMAINS DROWSY BUT SATURATION HAS BEEN MAINTAINED GREATER THAN 90%.PATIENT IS SOMNOLENT THIS MORNING AND CONTINUES TO BE.PATIENT HAS MOMENTS WHERE SHE MOVES HER HANDS AND GRUNTS.PATIENT REMAINS ON ROOM AIR. PATIENT RIGHT HIP HAD 3 INCISION SITES COVERED WITH GAUZE, CLEAN, DRY. PATIENTS CALL LIGHT WITHIN HER REACH.
[2023-09-05] MEDS ORDERED: Ascorbic Acid 500 MG TAB PO SCH (09:00)
[2023-09-05] MEDS ORDERED: Calcium Carbonate 500 MG TAB PO SCH (09:00)
--- NOTE | 2023-09-05 11:53 | NUR ---
coffee plantation worker faxed clinicals to [facility]. NALLELY notes PT/OT pending eval on patient. Discharge Plan: [facility]
--- NOTE | 2023-09-05 11:55 | NUR ---
patient remains drowsy. oxygen saturation at 96% room air currently. call light within reach. bed at lowest position.
[2023-09-05] MEDS ORDERED: Multivitamin TAB PO SCH (12:00)
--- NOTE | 2023-09-05 18:00 | NUR ---
patient has been drowsy and restless intermittently and moaning. patient unable to keep her eyes open throghout the day. Patient oxygen saturation was above 90's throughout the day. Patient gets agitated and restless and starts to tug on blankets, pillows, anything that she can feels near her hands. Patient is able to feel when her feet are touch and responds by moving her arms to the air. Patient haines inplace,but has some blood tinged urine from patient pulling on her haines. Patient marcio voiced concern about patient being drowsy. Doctor came to speak with patient .Patient tierney a CPAP machine that patient uses to use at night while she sleeps. Patient oral medications were not administered due to patient refusing to take anything oral and unable to swallow from being drowsy. call light within reach. bed alarm on.
[2023-09-05 19:37] LABS: HEMATOCRIT 28.9 % (37.0-47.0); HEMOGLOBIN 9.2 g/dl (12.5-16.0)
--- NOTE | 2023-09-05 20:00 | NUR ---
PATIENT IS VERY CONFUSED, ONLY GRUNTS AND MAKES WHIMPERING/CRYING SOUNDS. PATIENT DOESN'T ANSWER QUESTIONS. HX OF DEMENTIA AND NH REPORTS THEY WERE CRUSHING HER MEDS THERE. PATIENT INTERMITTENTLY DROWSY AND THEN IS RESTLESS AGAIN AND PULLING AT TELE, IV LINE & WEI. PATIENT APPEARS TO BE IN PAIN, GAVE PRN IV MORPHINE WITH HS MEDS. IV FLUIDS INFUSING VIA PUMP INTO RUE PICC LINE. PATIENT NOT TAKING MUCH ORALLY AT ALL. PATIENT GETS UPSET AND COMBATIVE AT TIMES WITH CARES. WEI TO DD WITH SMALL AMOUNTS OF DARK, TEA-COLORED URINE. PATIENT HAS HX OF CKD BUT ALSO HAS PULLED ON WEI SINCE SURGERY, POSSIBLY DUE TO BLOOD. HEAD TO TOE ASSESSMENT COMPLETE. DNR STATUS. PATIENT IS WEAK, UNABLE TO FOLLOW VERBAL QUES, AND IS 2 MAX ASSIST. PATIENT RESTING WITH CALL LIGHT IN REACH. BED ALARM ON.
--- NOTE | 2023-09-06 00:29 | NUR ---
PATIENT CRYING OUT, RESTLESS, AND PULLING AT TELE MONITOR. REPLACED TELE LEADS. PATIENT MOANS AND CRIES BUT IS UNABLE TO COMMUNICATE NEEDS. PATIENT HAS HX OF ADVANCED DEMENTIA. GAVE PRN IV MORPHINE
[2023-09-06 01:45] VITALS: BP_SYST 150
[2023-09-06 03:29] VITALS: BP 120/82; PULSE 79; TEMP 97.5
[2023-09-06 04:30] VITALS: BP_SYST 120
[2023-09-06 07:22] LABS: BASO % 0.1 % (0.0-2.0); GRAN # 5.4 K/mm3 (1.4-6.5); GRAN % 76.6 % (42.2-75.2); LYMPH % 13.6 % (20.0-51.0); MEAN CELL VOLUME 100 fl (80.0-100.0); MEAN CORPUSCULAR HGB CONC 31 g/dl (33.0-37.0); MEAN PLATELET VOLUME 10.6 fl (7.4-10.4); MONO # 0.6 K/mm3 (0.1-0.6); MONO % 9.1 % (1.7-9.3); PLATELET COUNT 293 K/mm3 (130-400); REDCELL DISTRIBUTION WIDTH-CV 18.3 % (11.5-14.5)
[2023-09-06 07:26] LABS: HEMOGLOBIN 8.3 g/dl (12.5-16.0); MEAN CORPUSCULAR HEMOGLOBIN 31 pg (27-31)
[2023-09-06 07:29] VITALS: BP_SYST 120
[2023-09-06 07:39] LABS: ALBUMIN 2.3 gm/dL (3.4-4.8); CALCIUM 7.9 mg/dL (8.4-10.2); CREATININE, serum 1.44 mg/dL (0.57-1.11); MAGNESIUM 2.3 mg/dL (1.6-2.6); PHOSPHOROUS 4.7 mg/dL (2.3-4.7); POTASSIUM 4.9 mmol/L (3.5-4.5)
[2023-09-06 08:19] VITALS: BP 145/87; PULSE 107; TEMP 97.1
--- NOTE | 2023-09-06 09:09 | NUR ---
PT RESTING IN BED CALLING OUT IN PAIN. PAIN MEDICATION PROVIDED PER EMAR. WATER SPONGE USED TO CLEAN MOUTH. BOOTS APPLIED TO PROTECT PT HEALS. NO NEW SKIN ISSUES. FAMILY AT BEDSIDE. PT REMAINS UNRESPONSIVE AND DOES NOT TOLERATE ANY PO INTAKE OR MEDICATIONS. WILL CONTINUE TO MONTIOR.
[2023-09-06] MEDS ORDERED: Morphine 4 MG/ML VIAL IV PRN ×2 (11:45→12:00)
[2023-09-06] MEDS ORDERED: LORazepam 2 MG/ML 1 ML VIAL IV PRN (12:00)
[2023-09-06] MEDS ORDERED: Glycopyrrolate 0.2 MG/ML 1 ML VIAL IV PRN (12:00)
[2023-09-06] MEDS ORDERED: Scopolamine 1 MG Delivered 3-Day PATCH TD SCH (12:00)
[2023-09-06] MEDS ORDERED: Haloperidol Lactate 5 MG/ML VIAL IV PRN (12:00)
[2023-09-06 12:09] VITALS: BP_SYST 145
--- NOTE | 2023-09-06 13:07 | NUR ---
NALLELY met with patient's at bedside alone with CHESTER Tierney to discuss palliative care due to patient physical decline. Patient in bed, nonresponsive, moaning and restless. Nurse notified of patient's apparent pain and discomfort. stated he and daughter in [place] are in agreement of hospice care for patient. prefers patient to return to [facility] for comfort care, but he has no preference in hospice providers. He asked that facility "go with whoever they feel are the best." NALLELY spoke with RN at facility who asked for referral be sent to [facility]. NALLELY spoke with Dipti with [facility] who requested clinicals be emailed to him for review. Patient to be transferred to [facility] tomorrow per attending. Clinicals faxed to [facility] for patient's return. Discharge Plan: [facility] with [facility].
--- NOTE | 2023-09-06 13:14 | NUR ---
Had a Palliative Care meeting with pt- unresponsive, laying in bed moaning and squeezing 's hand, Pankaj, NALLELY Multani, and myself. Dr. Tenorio had discussed Palliative with Pankaj during rounding. Pt is currently DNR. Dx Fx Hip. Post Op pt has not been alert. Medications have been reviewed per Dr. Tenorio/Dimitry pharmacist. Pankaj asked pt to be placed in Hospice. Nerissa BROWNING reviewed options for Hospice with Pankaj. stated, "The most important thing is for my to be comfortable. I would rather have her where things are familiar for her." Pt given Morphine during the discussion. All questions were answered and Pankaj voiced understanding.
--- NOTE | 2023-09-06 15:29 | NUR ---
SW received call from Dipti with [facility] requesting Social Security number and insurance number. Provided information as requested for referral.
--- NOTE | 2023-09-06 20:00 | NUR ---
PATIENT PLACED ON COMFORT CARES TODAY. VERY WET, RATTLY LUNG SOUNDS. TURNING SCHEDULE WITH PILLOWS AND HEEL PROTECTORS. PRN IV ATIVAN AND MORHPINE ORDERED FOR COMFORT, SEE MAR.
--- NOTE | 2023-09-06 23:20 | NUR ---
PATIENT VERY WET, RATTLED BREATHING SOUNDS WITH OCCATIONAL GRUNTING. WEAK COUGH. PATIENT LEANING IN BED WITH HEAD NOW RESTING/KINKED TO THE RIGHT. PATIENT REPOSITIONED AGAIN, THIS TIME TO HER LEFT SIDE WITH PILLOW. GAVE PRN IV MORPHINE FOR COMFORT/AIR HUNGER.
--- NOTE | 2023-09-07 02:50 | NUR ---
NURSING MAKING ROUNDS. PATIENT HAS A LONG AGONAL BREATH WITH A LONG PERIOD OF APNEA. PATIENT DIDN'T APPEAR TO BE BREATHING ANYMORE. RN LISTENED FOR 1 FULL MINUTE AND DID NOT HEAR A HB OR BREATHING. NOTIFIED HOSPITALIST, CHARGE NURSE, AND RECEIVING CLERK.
--- NOTE | 2023-09-07 03:00 | NUR ---
HOSPITALIST AT BEDSIDE AND CALLED TIME OF 0300. NOTIFIED. HOUSE CALLED HOME OF CHOICE.
--- NOTE | 2023-09-07 03:20 | NUR ---
PICC LINE AND WEI REMOVED. TELE LEADS REMOVED. PATIENT CLEANED UP AND POST MORTEM CARES COMPLETED.
--- NOTE | 2023-09-07 03:22 | NUR ---
0307- Notifed [facility] 0300. Referral number [id number]. Per Rsoa blanton to release patient to home. [id number]: Notified [facility] home to pickers material handlers patient per wishes.
--- NOTE | 2023-09-07 04:30 | NUR ---
HOME ARRIVED, PATIENT TAKEN WITH HER [place] RING ON AND PERSONAL BLANKET. PAPERWORK GIVEN TO HOME BY TAPPING MACHINE OPERATOR AUTOMATIC. PATIENT DISCHARGED.
== END 2023-09-07 04:30 | disposition expired | DRG 480 ==
LOC: COL.ER 17:40 → SURG 19:08
PROVIDERS: Internal Medicine; Nurse Anesthetist, Certified Registered; Nurse Practitioner; Nurse Practitioner Family; Orthopaedic Surgery; ADMIT Internal Medicine
PROC: 02HV33Z Insertion of Infusion Device into Superior Vena Cava, Percutaneous Approach (ICD-10-PCS; 2023-09-02)
PROC: 0QS606Z Reposition Right Upper Femur with Intramedullary Internal Fixation Device, Open Approach (ICD-10-PCS; principal; 2023-09-04 08:00)
DX: S72.141A Displaced intertrochanteric fracture of right femur, initial encounter for closed fracture (principal); G93.41 Metabolic encephalopathy; E44.0 Moderate protein-calorie malnutrition; I13.0 Hypertensive heart and chronic kidney disease with heart failure and stage 1 through stage 4 chronic kidney disease, or unspecified chronic kidney disease; I42.9 Cardiomyopathy, unspecified; I48.20 Chronic atrial fibrillation, unspecified; I50.22 Chronic systolic (congestive) heart failure; N17.9 Acute kidney failure, unspecified; Z68.1 Body mass index [BMI] 19.9 or less, adult; Z66 Do not resuscitate; Z51.5 Encounter for palliative care; F03.90 Unspecified dementia, unspecified severity, without behavioral disturbance, psychotic disturbance, mood disturbance, and anxiety; E78.00 Pure hypercholesterolemia, unspecified; F31.9 Bipolar disorder, unspecified; E03.9 Hypothyroidism, unspecified; I25.10 Atherosclerotic heart disease of native coronary artery without angina pectoris; I49.5 Sick sinus syndrome; D64.9 Anemia, unspecified; G40.909 Epilepsy, unspecified, not intractable, without status epilepticus; H40.9 Unspecified glaucoma; N18.9 Chronic kidney disease, unspecified; G47.33 Obstructive sleep apnea (adult) (pediatric); I95.9 Hypotension, unspecified; F41.9 Anxiety disorder, unspecified; M62.81 Muscle weakness (generalized); M19.90 Unspecified osteoarthritis, unspecified site; H26.9 Unspecified cataract; I08.3 Combined rheumatic disorders of mitral, aortic and tricuspid valves; W18.39XA Other fall on same level, initial encounter; Y93.89 Activity, other specified; Y92.128 Other place in nursing home as the place of occurrence of the external cause; Z86.73 Personal history of transient ischemic attack (TIA), and cerebral infarction without residual deficits; Z79.01 Long term (current) use of anticoagulants; Z95.0 Presence of cardiac pacemaker; Z79.899 Other long term (current) drug therapy; Z99.89 Dependence on other enabling machines and devices; Z23 Encounter for immunization
CPT/HCPCS: A4314; A9270; A9284; C1713; C1751; C9113; J0690; J1100; J1644; J1650; J1953; J2060; J2270; J2310; J2371; J2405; J2704; J2795; J3010; J3480; J7030